=== PATIENT | female | born 1995 | race Caucasian/White ===

== ENCOUNTER 2019-10-17 12:26 | Emergency (ER) | payer BC ==
[~2019-10-17] VITALS: Ht 180.3 cm; Wt 77.2 kg
[2019-10-17] MEDS ORDERED: CIPRO500 MG PO (12:54)
[2019-10-17 13:09] VITALS: BP 116/76
--- NOTE | 2019-10-17 13:09 | Emergency Department Note ---
History of Present Illnes History of Present Illness Chief Complaint: Genitourinary History of Present Illness This is a 24 year old female with dysuria, frequency, and urgency X 3 days. Similar symptoms in past with UTIs. Took OTC AZO @ symptom onset and symptoms immediately improved, but started worsening today. No fever/chills. No N/V/D. No vag D/C. LMP Sep 28. 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 Any updates have been documented here. Past Medical History Recent Fever: No Clinical Suspicion of Infectio: Yes New/Unexplained Change in Ment: No Past Medical History: None Other Surgery: RIGHT KNEE ACL Social History Smoking Cessation: Never Smoker Counseling Performed: No Alcohol Use: None Any Illegal Drug Use: No Physically hurt or threatened: No Other Any Pre-Existing Lines (PICC,: No Review of Systems Review of Systems Constitutional: Reports no symptoms EENTM: Reports no symptoms Cardiovascular: Reports no symptoms Respiratory: Reports no symptoms Gastrointestinal: Reports no symptoms Genitourinary: Reports no symptoms Musculoskeletal: Reports no symptoms Integumentary: Denies rash Neurological: Reports no symptoms Psychological: Reports no symptoms Hematological/Lymphatic: Reports no symptoms Physical Exam Related Data Allergies: Coded Allergies: No Known Allergies (Unverified , 10/17/19) Physical Exam CONSTITUTIONAL Constitutional: Present well-developed, Present well-nourished HENT HENT: Present normocephalic, Present atraumatic, Present oropharynx clear/moist, Present nose normal HENT L/R: Present left ext ear normal, Present right ext ear normal EYES Eyes: Reports PERRL, Reports conjunctivae normal NECK Neck: Present ROM normal PULMONARY Pulmonary: Present effort normal, Present breath sounds normal CARDIOVASCULAR Cardiovascular: Present regular rhythm, Present heart sounds normal, Present capillary refill normal, Present normal rate GASTROINTESTINAL Abdominal: Present soft, Present nontender, Present bowel sounds normal GENITOURINARY SKIN Skin: Present warm, Present dry MUSCULOSKELETAL Musculoskeletal: Present ROM normal NEUROLOGICAL Neurological: Present alert, Present oriented x 3, Present no gross motor or sensory deficits PSYCHOLOGICAL Psychological: Present mood/affect normal, Present judgement normal Results Laboratory Laboratory comments Small [place], + Nit, large Blood. Pro > 300, Glu neg, lore neg, Ket. HCG neg. Assessment & Plan Medical Decision Making MDM Patient presents with her typical UTI symptoms and +UA. Other possible dx includes, but not limited to, kidney stone. However, symptoms are limited to dysuria with no flank pain or abd pain. Gave strict return precautions and patient to have prompt follow-up. Assessment & Plan Final Impression: (1) UTI (urinary tract infection) Depart Disposition: HOME, SELF-custodial Meds Active Scripts Ciprofloxacin Hcl (CIPRO) 500 Mg Tablet, 500 MG PO BID for 7 Days, #14 MG 0 Refills Prov:CARMELINA MARK MD 10/17/19 CARMELINA MARK MD Oct 17, 2019 13:00
== END 2019-10-17 13:05 | disposition home or self-care (01) ==
LOC: FSED 12:26
DX: N39.0 Urinary tract infection, site not specified (principal); R30.0 Dysuria; R39.15 Urgency of urination
CPT/HCPCS: 81003; 81025; 99283